=== PATIENT | female | born 1975 | race Two or more races ===

== ENCOUNTER 2023-06-10 09:09 | Emergency (ER) | payer MEDICAID ==
[~2023-06-10] VITALS: Ht 160 cm; Wt 63.5 kg
[2023-06-10] MEDS ORDERED: methylPREDNISolone SOD SUCC 125 MG/2ML VIAL ONE (09:40)
[2023-06-10] MEDS ORDERED: diphenhydrAMINE HCL 50 MG/ML VIAL ONE (09:40)
[2023-06-10] MEDS ORDERED: FAMOTIDINE/PF INJ 20 MG/2 ML VIAL IV ONE ×2 (09:41→10:00)
[2023-06-10] MEDS ORDERED: diphenhydrAMINE HCL 50 MG/ML VIAL IV ONE (10:00)
[2023-06-10] MEDS ORDERED: methylPREDNISolone SOD SUCC 125 MG/2ML VIAL IV ONE (10:00)
[2023-06-10] MEDS ORDERED: DIPH25CA51 PO (10:43)
[2023-06-10] MEDS ORDERED: CLIN300C12 PO (10:43)
[2023-06-10] MEDS ORDERED: FAMO-131 PO (10:43)
[2023-06-10] MEDS ORDERED: PRED20TA PO (10:43)
[2023-06-10 10:54] VITALS: BP 143/89; TEMP 98; O2SAT 99
== END 2023-06-10 10:54 | disposition home or self-care (01) ==
LOC: ER 09:19
DX: S20.361A Insect bite (nonvenomous) of right front wall of thorax, initial encounter (principal); W57.XXXA Bitten or stung by nonvenomous insect and other nonvenomous arthropods, initial encounter; Y93.89 Activity, other specified; Y92.89 Other specified places as the place of occurrence of the external cause; Y99.8 Other external cause status
CPT/HCPCS: 99284; 96374; 71045; 96375; J1200; J3490; J2930